=== PATIENT | female | born 1995 | race Caucasian/White ===

== ENCOUNTER 2018-11-27 21:50 | Emergency (ER) | payer OTHER ==
[~2018-11-27] VITALS: Ht 152.4 cm; Wt 55.8 kg
[~2018-11-27 21:50] MED LIST: [UNRECOGNIZED DRUG - OTHER]
[2018-11-27 22:26] VITALS: Ht 152.4 cm; Wt 55.8 kg
[2018-11-28] MEDS ORDERED: AZIT250T PO (00:59)
[2018-11-28] MEDS ORDERED: ALBU8.5H8 INH (00:59)
[2018-11-28] MEDS ORDERED: D-ME473S2 PO (00:59)
[2018-11-28] MEDS ORDERED: PROMETHAZINE/DM (CUP) PO ONE ×2 (01:00→01:30)
--- NOTE | 2018-11-28 01:10 | ERD ---
ER Documentation Chief Complaint Chief Complaint PRODUCTIVE COUGH AND FEVER HPI This is a 23-year-old female with a nonsignificant past medical history who presents ED with cough times 3 days. Patient admits to chills, headache. Denies fever, sputum production, shortness of breath, trouble breathing, wheezing, nausea, vomiting, diarrhea, constipation, abdominal pain, neck pain and all other symptoms. No known drug allergies. ROS All systems reviewed and are negative except as per history of present illness. Medications Home Meds Active Scripts Dextromethorphan Hb-Promethazine Hcl* (Promethazine DM* Syrup) 473 Ml Syrup, 5 ML PO Q6 PRN for COUGH for 5 Days, ML Prov:GRISEL BALBUENA PA-C 11/28/18 Albuterol Sulfate* (Proair HFA*) 8.5 Gm Hfa.aer.ad, 2 PUFF INH Q4, #1 INHALER Prov:GRISEL BALBUENA PA-C 11/28/18 Azithromycin* (Zithromax*) 250 Mg Tablet, 250 MG PO .ZPACK DIRECTED, #6 TAB TAKE 500 MG (2 TABS) THE FIRST DAY THEN 250 MG (1 TAB) DAYS 2-5 Prov:GRISEL BALBUENA PA-C 11/28/18 Reported Medications [N0ne] No Conflict Check 01/14/10 Allergies Allergies: Coded Allergies: No Known Allergies (Verified Allergy, Mild, 04/23/13) PMhx/Soc History of Surgery: No Anesthesia Reaction: No Hx Neurological Disorder: No Hx Respiratory Disorders: Yes (BRONCHITIS) Hx Cardiac Disorders: No Hx Psychiatric Problems: No Hx Miscellaneous Medical Probl: No Hx Alcohol Use: No Hx Substance Use: No Hx Tobacco Use: No FmHx Family History: No diabetes Physical Exam Vitals Vital Signs Date Temp Pulse Resp B/P (MAP) Pulse Ox O2 O2 Flow FiO2 Time Delivery Rate 11/27/18 99.0 101 126/72 100 22:26 (90) Physical Exam Physical Exam Vitals signs: Reviewed by me. General: Well developed, well nourished, in no acute distress. Patient is awake and alert. Head: Normocephalic, atraumatic. Eyes: Normal conjunctiva, Pupils PERRLA, EOM intact grossly ENT: Pharynx is clear, Moist mucous membranes, external ears, nose and mouth normal, no tonsillar adenopathy, exudate or erythema, no kissing tonsils, no uvula deviation, normal nasal mucosa Neck: Supple, no masses, lymphadenopathy or JVD Respiratory: Clear to auscultation bilaterally with no wheezing, rhonchi, rales, no distress, no respiratory distress, no labored breathing Cardiovascular: RRR, no murmurs, rubs, or gallops Neurologic: Alert and oriented, moving all extremities, normal speech, no focal weakness, no cerebellar signs. Normal mentation Skin: warm and dry, No rash Psych: Normal mood Results 24 hrs Current Medications Medications Dose Sig/Yosef Start Time Status Last (Trade) Ordered Route PRN Stop Time Admin Dose Reason Admin Promethazine 5 ml ONCE ONCE 11/28/18 Cancel HCl/ PO 01:00 Dextromethorp 11/28/18 01:01 young (Phenergan-Dm ) Promethazine 5 ml ONCE ONCE 11/28/18 HCl/ PO 01:30 Dextromethorp 11/28/18 01:31 young (Phenergan-Dm ) Procedures/MDM ER COURSE: The patient was stable throughout ED course. I kept the patient and/or family informed of laboratory and diagnostic imaging results throughout the emergency room course. The patient was promptly evaluated and a treatment plan was devised based on H&P and other data. This plan was discussed with the patient who agreed and had no further questions or concerns prior to discharge. MEDICAL DECISION MAKIN-year-old female presents ED with cough times 3 days. Symptoms are most likely consistent with acute bronchitis, Low suspicion for pneumonia, as lung sounds are clear at this time. Oxygen saturation is normal and patient does not have any respiratory distress. Advanced imaging is not indicated at this time. Low suspicion for other cardiopulmonary emergency such as pulmonary embolism, pneumothorax, tension pneumothorax, pleural effusion, pneumothorax, CHF, aortic aneurysm or other cardiopulmonary emergencies. No evidence of sepsis. Patient's vitals are stable he can be managed with close outpatient follow-up. Advised patient to follow-up with primary care in the next 48 hours. Return to ED with any worsening symptoms DISPOSITION PLAN: We discussed follow up with the patient's primary care doctor within 24 to 48 hours. Patient counseled regarding my diagnostic impression and care plan. Prior to discharge all questions answered. Pt agrees with treatment plan and understands strict return precautions. Precautionary instructions provided including instructions to return to the ER if not improving or for any worsening or changing symptoms or concerns. ExitCare instructions provided. Prior to discharge, patients vital signs have been reviewed SPECIALIST FOLLOW UP RECOMMENDED: None Patient has been advised to follow up with primary care in 1-2 days. Disclaimer: Inadvertent spelling and grammatical errors are likely due to EHR/dictation software use and do not reflect on the overall quality of patient care. Also, please note that the electronic time recorded on this note does not necessarily reflect the actual time of the patient encounter. Departure Diagnosis: Primary Impression: Acute bronchitis Bronchitis organism: unspecified organism Qualified Codes: J20.9 - Acute bronchitis, unspecified Condition: Stable Patient Instructions: Acute Bronchitis, Bronchitis, Antiobiotic Treatment (Adult) Referrals: [facility] ted se smith hecho un examen mdico de control que le indica que no est en alison condicin que requiera tratamiento urgente en el Departamento de Emergencia. Un estudio ms profundo y el tratamiento de ornelas condicin pueden esperar sin ningn riesgo hasta que usted sea atendida/o en el consultorio de ornelas mdico o alison clnica. Es responsabilidad suya arreglar alison wang para el seguimiento del niesha. MANEJO DE CONDICIONES NO URGENTES EN EL FUTURO 1) Si usted tiene un mdico de atencin primaria: Usted debera llamar a ornelas mdico de atencin primaria antes de venir al departamento de emergencia. Despus de las horas de consultorio, ornelas doctor o ornelas asociado/a est disponible por telfono. El mdico o enfermero de eleazar en el servicio telefnico puede asesorarle por giovanna medio para atender el problema, o niesha contrario se puede programar alison wang. 2) Si usted no tiene un mdico de atencin primaria: Llame al mdico o clnica de referencia que aparece abajo tamara las horas de consultorio para hacer alison wang para que le vean. CLINICAS: [facility] [phone] [place] [facility] [phone] [facility] [phone] [place] [address] [phone] [facility] [phone] [facility] [phone] [address] Additional Instructions: Patient advised to return to the ED immediately for new or worsening symptoms. Patient advised to follow up with primary care provider in the next 24-48 hours. Patient verbalized understanding and agrees with treatment plan and course of action. If patient has no primary care they may follow up with one of the community clinics listed on the following page or one of the options listed below [facility] + [facility] [address] [place] [phone] or [facility] [address] [place] [address] or [facility] [address] [place] [address] GRISEL BALBUENA PA-C Nov 28, 2018 01:10
[2018-11-28 01:40] VITALS: BP 125/83; PULSE 81; RESP 18
== END 2018-11-28 01:41 | disposition home or self-care (01) ==
LOC: FTE 21:50
DX: J20.9 Acute bronchitis, unspecified (principal)
CPT/HCPCS: Z7502; Z7610; 99283

== ENCOUNTER 2019-02-27 12:47 | Emergency (ER) | payer OTHER ==
[~2019-02-27] VITALS: Wt 55.0 kg
[~2019-02-27 12:47] MED LIST changes: +ALBU8.5H8 INH; +AZIT250T PO; +D-ME473S2 PO
[2019-02-27 12:50] VITALS: RESP 18
[2019-02-27] MEDS ORDERED: SOD CHLORIDE 0.9% 1,000 ML IV STA (15:03)
[2019-02-27] MEDS ORDERED: ONDANSETRON 4 MG INJ IV STA (15:09)
--- NOTE | 2019-02-27 15:21 | ERD ---
ER Documentation Chief Complaint Chief Complaint dizzy 'spinning' since AM; was spray painting possib inhaled too much. amb. HPI This is a 23-year-old female denies significant past medical history presents to ED with complaints of dizziness since this morning. 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 Patient describes the dizziness as room spinning sensation. Starts when she patient states that the dizziness starts when she moves her head. The patient sits still the dizziness subsides. Patient admits to a mild headache that has been gradual in onset that she rates at a 6 out of 10. Admits to nausea but has not had any episodes of vomiting. Denies fevers, chills, shortness of breath, trouble breathing, chest pain, blurry vision, weakness, tingling, numbness, lack sensation in all other symptoms. No known drug allergies. Denies chance of being . ROS All systems reviewed and are negative except as per history of present illness. Medications Home Meds Active Scripts Dextromethorphan Hb-Promethazine Hcl* (Promethazine DM* Syrup) 473 Ml Syrup, 5 ML PO Q6 PRN for COUGH for 5 Days, ML Prov:GRISEL BALBUENA PA-C 11/28/18 Albuterol Sulfate* (Proair HFA*) 8.5 Gm Hfa.aer.ad, 2 PUFF INH Q4, #1 INHALER Prov:GRISEL BALBUENA PA-C 11/28/18 Azithromycin* (Zithromax*) 250 Mg Tablet, 250 MG PO .ZPACK DIRECTED, #6 TAB TAKE 500 MG (2 TABS) THE FIRST DAY THEN 250 MG (1 TAB) DAYS 2-5 Prov:GRISEL BALBUENA PA-C 11/28/18 Reported Medications [N0ne] No Conflict Check 01/14/10 Allergies Allergies: Coded Allergies: No Known Allergies (Verified Allergy, Mild, 02/27/19) PMhx/Soc History of Surgery: No Anesthesia Reaction: No Hx Neurological Disorder: No Hx Respiratory Disorders: Yes (BRONCHITIS) Hx Cardiac Disorders: No Hx Psychiatric Problems: No Hx Miscellaneous Medical Probl: No Hx Alcohol Use: No Hx Substance Use: No Hx Tobacco Use: No Smoking Status: Never smoker FmHx Family History: No diabetes Physical Exam Vitals Vital Signs Date Temp Pulse Resp B/P (MAP) Pulse Ox O2 O2 Flow FiO2 Time Delivery Rate 02/27/19 98.3 94 18 119/66 99 12:50 (83) Physical Exam Physical Exam Vitals signs: Reviewed by me. General: Well developed, well nourished, in no acute distress. Patient is awake and alert. Head: Normocephalic, atraumatic. Eyes: Normal conjunctiva, Pupils PERRLA, EOM intact grossly ENT: Pharynx is clear, Moist mucous membranes, external ears, nose and mouth normal Neck: Supple, no masses, lymphadenopathy or JVD Respiratory: Clear to auscultation bilaterally with no wheezing, rhonchi, rales, no distress Cardiovascular: RRR, no murmurs, rubs, or gallops Abdominal: Soft, non-tender, non-distended, no peritoneal signs : Deferred MSK: No edema, no unilateral swelling, 5/5 strength Back: No midline tenderness. No flank tenderness Neurologic: Alert and oriented, moving all extremities, normal speech, no focal weakness, no cerebellar signs. Normal mentation Cranial nerves II through XII intact bilaterally Neuro: M/S: Alert and oriented Face: EOMI, face and pharynx with normal sensation and function Motor: Normal strength throughout Sensation: Normal sensation throughout Speech: Normal Cerebel: Normal coordination Normal gait Normal finger to nose DTR: 2+ and symmetric upper/lower extremities Skin: warm and dry, No rash Psych: Normal mood Result Diagram: 02/27/19 1524 02/27/19 1524 Results 24 hrs Laboratory Tests Test 02/27/19 15:24 02/27/19 15:26 White Blood Count 6.4 10^3/ul Red Blood Count 4.52 10^6/ul Hemoglobin 14.3 g/dl Hematocrit 42.4 % Mean Corpuscular Volume 93.8 fl Mean Corpuscular Hemoglobin 31.6 pg Mean Corpuscular Hemoglobin Concent 33.7 g/dl Red Cell Distribution Width 11.6 % Platelet Count 211 10^3/UL Mean Platelet Volume 9.8 fl Immature Granulocytes % 0.200 % Neutrophils % 68.9 % Lymphocytes % 24.4 % Monocytes % 5.0 % Eosinophils % 0.9 % Basophils % 0.6 % Nucleated Red Blood Cells % 0.0 /100WBC Immature Granulocytes # 0.010 10^3/ul Neutrophils # 4.4 10^3/ul Lymphocytes # 1.6 10^3/ul Monocytes # 0.3 10^3/ul Eosinophils # 0.1 10^3/ul Basophils # 0.0 10^3/ul Nucleated Red Blood Cells # 0.0 10^3/ul Prothrombin Time 13.0 Sec Prothrombin Time Ratio 1.0 INR International Normalized Ratio 0.97 Activated Partial Thromboplast Time 28.5 Sec Urine Color YELLOW Urine Clarity CLEAR Urine pH 7.0 Urine Specific [place] 1.008 Urine Ketones TRACE mg/dL Urine Nitrite NEGATIVE mg/dL Urine Bilirubin NEGATIVE mg/dL Urine Urobilinogen NEGATIVE mg/dL Urine Leukocyte Esterase NEGATIVE Smith/ul Urine Microscopic RBC 1 /HPF Urine Microscopic WBC 1 /HPF Urine Squamous Epithelial Cells FEW /HPF Urine Hemoglobin 1+ mg/dL Urine Glucose NEGATIVE mg/dL Urine Total Protein NEGATIVE mg/dl Sodium Level 142 mmol/L Potassium Level 3.7 mmol/L Chloride Level 106 mmol/L Carbon Dioxide Level 28 mmol/L Anion Gap 8 Blood Urea Nitrogen 10 mg/dl Creatinine 0.53 mg/dl Est Glomerular Filtrat Rate mL/min > 60 mL/min Glucose Level 95 mg/dl Calcium Level 9.4 mg/dl POC Beta HCG, Qualitative NEGATIVE Current Medications Medications Dose Sig/Yosef Start Time Status Last (Trade) Ordered Route PRN Stop Time Admin Dose Reason Admin Sodium 1,000 ml @ Q1H STAT 02/27/19 DC 02/27/19 Chloride 1,000 mls/hr IV 15:03 15:26 02/27/19 16:02 Ondansetron 4 mg ONCE STAT 02/27/19 DC 02/27/19 HCl (Zofran IV 15:09 15:26 Inj) 02/27/19 15:10 Meclizine 25 mg ONCE ONCE 02/27/19 DC 02/27/19 HCl PO 15:30 15:26 (Antivert) 02/27/19 15:31 Procedures/MDM EKG, MONITORS, & DIAGNOSTIC IMAGING: EKG read by sumit: Rate/Rhythm: Regular rate and rhythm at a rate of 94 Intervals: Normal Impression: No evidence of ischemia or arrhythmia LAB INTERPRETATION: CBC shows no evidence of hemorrhage or infection Chemistry shows no evidence of significant electrolyte abnormalities or renal insufficiency Coagulation study showed no concerning coagulopathy ua unremarkable ER COURSE: The patient was given IV normal saline, meclizine and Zofran The medication was well tolerated and the patient reports improvement in symptoms. The patient was stable throughout ED course. I kept the patient and/or family informed of laboratory and diagnostic imaging results throughout the emergency room course. The patient was promptly evaluated and a treatment plan was devised based on H&P and other data. This plan was discussed with the patient who agreed and had no further questions or concerns prior to discharge. MEDICAL DECISION MAKING: This is a 23-year-old female presents ED with complaints of dizziness since this morning. Differential diagnosis include but are not limited to central causes such as cerebellar infarct, cerebellar pallor hemorrhage, cerebellar tumor, acoustic neuroma, peripheral causes such as benign positional vertigo, labyrinthitis, medication, Mnire's disease. This is likely benign positional vertigo. Patient has no neurological deficits. Patient was given meclizine, Zofran and IV normal saline in the ED today and reports resolution in symptoms. Patient's vitals are stable and can be managed with close out patient follow up. Advised to follow up with primary care in the next 48 hours. Return to emergency department with any any worsening symptoms DISPOSITION PLAN: We discussed follow up with the patient's primary care doctor within 24 to 48 hours. Patient counseled regarding my diagnostic impression and care plan. Prior to discharge all questions answered. Pt agrees with treatment plan and understands strict return precautions. Precautionary instructions provided including instructions to return to the ER if not improving or for any worsening or changing symptoms or concerns. SPECIALIST FOLLOW UP RECOMMENDED: None Patient has been advised to follow up with primary care in 1-2 days. Disclaimer: Inadvertent spelling and grammatical errors are likely due to EHR/dictation software use and do not reflect on the overall quality of patient care. Also, please note that the electronic time recorded on this note does not necessarily reflect the actual time of the patient encounter. Departure Diagnosis: Primary Impression: Benign positional vertigo Laterality: unspecified laterality Qualified Codes: H81.10 - Benign paro xysmal vertigo, unspecified ear Condition: Stable Patient Instructions: Benign Positional Vertigo, Managing Dizziness (Vertigo) with Medications, Vertigo, Unspecified Referrals: [facility] Additional Instructions: Patient advised to return to the ED immediately for new or worsening symptoms. Patient advised to follow up with primary care provider in the next 24-48 hours. Patient verbalized understanding and agrees with treatment plan and course of action. If patient has no primary care they may follow up with one of the community clinics listed on the following page or one of the options listed below [facility] + [facility] [address] [place] [phone] or [facility] [address] [place] [address] or [facility] [address] [place] [address] GRISEL BALBUENA PA-C Feb 27, 2019 15:21
[2019-02-27] MEDS ORDERED: MECLIZINE 12.5 MG TAB PO ONE (15:30)
[2019-02-27] MEDS ORDERED: ONDA4TAB14 PO (16:12)
[2019-02-27] MEDS ORDERED: MECL12.574 PO (16:12)
[2019-02-27 16:38] VITALS: BP 113/70; PULSE 84
== END 2019-02-27 16:39 | disposition home or self-care (01) ==
LOC: FTE 12:47
DX: H81.10 Benign paroxysmal vertigo, unspecified ear (principal)
CPT/HCPCS: 36415; 80048; 81001; 81025; 85025; 85610; 85730; 93005; 96374; J2405; J7030; Z7502; Z7610